=== PATIENT | female | born 1970 | race Caucasian/White ===

== ENCOUNTER 2016-10-03 12:14 | Emergency (ER) | payer BC ==
--- NOTE | 2016-10-03 12:39 | EDM.PDOC ---
ED HPI ENT - General Chief Complaint: ENT Problem Stated Complaint: SINUS INFECTION Time Seen by Provider: 10/03/16 12:25 Source of Information: Reports: Patient History Limitations: Reports: No limitations - History of Present Illness INITIAL COMMENTS - FREE TEXT/NARRATIVE: HISTORY AND PHYSICAL: History of present illness: [Comes to the emergency room complaining of sinus pain and pressure and left temporal headache. She reports a history of migraine headaches since 1994. The headache she is experiencing today is the same as her migraine headaches but much less severe. She does not have a local primary care provider. She feels very congested in her face and sinuses but has not been able to blow out any nasal discharge. Feels tender over her left sinuses. She's had an occasional cough but nothing of any significance. Her appetite is good. no nausea or vomiting. No earaches or sore throat. She's not had any wheezing, shortness of breath or difficulty breathing. She does not take any prescription medications at this time. she has used some [id number] Mucinex with minimal improvement in her symptoms. ] Review of systems: As per history of present illness and below otherwise all systems reviewed and negative. Past medical history: As per history of present illness and as reviewed below otherwise noncontributory. Surgical history: As per history of present illness and as reviewed below otherwise noncontributory. Social history: No reported history of drug or alcohol abuse. Family history: As per history of present illness and as reviewed below otherwise noncontributory. Physical exam: HEENT: Atraumatic, normocephalic. Tenderness with palpation over left paranasal sinuses. Conjunctiva clear. Oral mucous membranes are pink and moist. no tonsillar swelling erythema or exudate. Throat is clear. TMs are pearly lyles and without erythema or effusion. neck is supple no lymphadenopathy. Lungs: Clear to auscultation, breath sounds equal bilaterally. Heart: S1S2, regular, negative for clicks, rubs, or JVD. Abdomen: Soft, nondistended, nontender. Negative for masses or hepatosplenomegaly. Genitourinary: Deferred. Rectal: Deferred. Extremities: Atraumatic, negative for cords or calf pain. Cyanosis or edema to feet or lower legs. Neurovascular unremarkable. Neuro: Awake, alert, oriented. Exam nonfocal. Impression: [Sinusitis] Plan: [Levaquin 500 mg daily for 7 days. Continue decongestants and Mucinex. Urged her to establish care with local primary care provider. All of her questions are answered and concerns are addressed.] Definitive disposition and diagnosis as appropriate pending reevaluation and review of above. - Related Data Allergies/ADRs: Allergies Allergy/AdvReac Type Severity Reaction Status Date / Time doxycycline Allergy Nausea Verified 10/03/16 12:23 Penicillins Allergy Rash Verified 10/03/16 12:23 Home Meds: Home Meds . 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 (see below) Other OB/BYN History: hysterectomy Neurological History: Reports: Headaches, chronic, Migraines Endocrine/Metabolic History: Reports: None Hematologic History: Reports: None Immunologic History: Reports: None - Infectious Disease History Infectious Disease History: Reports: Mumps - Past Surgical History Head Surgeries/Procedures: Reports: None Musculoskeletal Surgical History: Reports: Carpal tunnel Social & Family History - Family History Family Medical History: Noncontributory - Tobacco Use Smoking Status *Q: Never Smoker Second Hand Smoke Exposure: No - Caffeine Use Caffeine Use: Reports: Coffee, Soda Caffeine Use Comment: 4-5/day - Recreational Drug Use Recreational Drug Use: No ED ROS ENT - Review of Systems Review Of Systems: ROS reveals no pertinent complaints other than HPI. ED EXAM, ENT - Physical Exam Exam: See Below Course - Vital Signs Last Recorded V/S: Last Vital Signs Temp 98.0 F 10/03/16 12:16 Pulse 74 10/03/16 12:16 Resp 16 10/03/16 12:16 BP 123/75 10/03/16 12:16 Pulse Ox 100 10/03/16 12:16 Departure - Departure Time of Disposition: 12:40 Disposition: Home, Self-Care 01 Condition: good Clinical Impression: Acute sinusitis Qualifiers: Sinusitis location: unspecified location Recurrence: not specified as recurrent Qualified Code(s): J01.90 - Acute sinusitis, unspecified Instructions: Sinusitis, Adult, [id number] Referrals: PCP,None [Primary Care Provider] - Forms: ED Department Discharge Additional Instructions: The following information is given to patients seen in the emergency department who are being discharged to home. This information is to outline your options for follow-up care. We provide all patients seen in our emergency department with a follow-up referral. The need for follow-up, as well as the timing and circumstances, are variable depending upon the specifics of your emergency department visit. If you don't have a primary care physician on staff, we will provide you with a referral. We always advise you to contact your personal physician following an emergency department visit to inform them of the circumstance of the visit and for follow-up with them and/or the need for any referrals to a consulting specialist. The emergency department will also refer you to a specialist when appropriate. This referral assures that you have the opportunity for follow-up care with a specialist. All of these measure are taken in an effort to provide you with optimal care, which includes your follow-up. Under all circumstances we always encourage you to contact your private physician who remains a resource for coordinating your care. When calling for follow-up care, please make the office aware that this follow-up is from your recent emergency room visit. If for any reason you are refused follow-up, please contact the [facility] emergency department at and asked to speak to the emergency department charge nurse. [address] [address] Established care with a medical provider at the clinic listed above. Tylenol and ibuprofen as needed for discomfort. Take antibiotics as prescribed Return to ER as needed as discussed.
== END 2016-10-03 12:45 | disposition home or self-care (01) ==
LOC: MW.ED 12:14
CPT/HCPCS: 99283

== ENCOUNTER 2016-12-08 21:33 | Emergency (ER) | payer BC ==
--- NOTE | 2016-12-08 21:52 | EDM.PDOC ---
ED HPI GENERAL MEDICAL PROBLEM - General Chief Complaint: Lower Extremity Injury/Pain Stated Complaint: POSSIBLE BROKEN LEFT PINKY TOE Time Seen by Provider: 12/08/16 21:45 - History of Present Illness INITIAL COMMENTS - FREE TEXT/NARRATIVE: HISTORY AND PHYSICAL: History of present illness: The patient is a 46-year-old female with no stated medical history who presents with complaints of pain to her left fifth toe after her 3-year-old granddaughter stepped on it at 3 PM, approximately 7 hours ago. The patient denies any other trauma and has no foot pain but says that the pain originates at the fifth toe and radiates up. She's noticed some bruising to the area and would like evaluation. There are no neurosensory changes in the foot or toe. The remainder of the toes are not painful Review of systems: As per history of present illness and below otherwise all systems reviewed and negative. Past medical history: As per history of present illness and as reviewed below otherwise noncontributory. Surgical history: As per history of present illness and as reviewed below otherwise noncontributory. Social history: No reported history of drug or alcohol abuse. Family history: As per history of present illness and as reviewed below otherwise noncontributory. Physical exam: General: Well-developed well-nourished female nontoxic vital signs have been reviewed by me HEENT: Atraumatic, normocephalic, negative for conjunctival pallor or scleral icterus, mucous membranes moist, throat clear, neck supple, nontender, trachea midline. Lungs: Clear to auscultation, breath sounds equal bilaterally, chest nontender. Heart: S1S2, regular, negative for clicks, rubs, or JVD. Abdomen: Soft, nondistended, nontender. NABS Pelvis: Stable nontender. Genitourinary: Deferred. Rectal: Deferred. Extremities: Atraumatic throughout all extremities with full range of motion with the exception of the left fifth toe with there is minimal mild swelling, ecchymosis is visualized and there is tenderness in this region. The remainder of the toes and left foot are without tenderness or deformities. Neurovascular intact in the toes. The legs are, negative for cords or calf pain. Neurovascular unremarkable. Neuro: Awake, alert, oriented. Cranial nerves II through XII unremarkable. Cerebellum unremarkable. Motor and sensory unremarkable throughout. Exam nonfocal. Diagnostics: X-ray left fifth toe Therapeutics: Patient deferred pain medication on my initial evaluation Postop shoe siomara tape Impression: Fracture of left fifth toe Definitive disposition and diagnosis as appropriate pending reevaluation and review of above. 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 (see below) Other OB/BYN History: hysterectomy Neurological History: Reports: Headaches, chronic, Migraines Endocrine/Metabolic History: Reports: None Hematologic History: Reports: None Immunologic History: Reports: None - Infectious Disease History Infectious Disease History: Reports: Mumps - Past Surgical History Head Surgeries/Procedures: Reports: None Musculoskeletal Surgical History: Reports: Carpal tunnel Social & Family History - Family History Family Medical History: Noncontributory - Tobacco Use Smoking Status *Q: Never Smoker Second Hand Smoke Exposure: No - Caffeine Use Caffeine Use: Reports: Coffee, Soda Caffeine Use Comment: 4-5/day - Recreational Drug Use Recreational Drug Use: No Review of Systems - Review of Systems Review Of Systems: ROS reveals no pertinent complaints other than HPI. Trauma Exam - Physical Exam Exam: See Below (See dictation) Course - Vital Signs Last Recorded V/S: Last Vital Signs Temp 36.6 C 12/08/16 22:52 Pulse 77 12/08/16 22:52 Resp 16 12/08/16 22:52 BP 115/77 12/08/16 22:52 Pulse Ox 96 12/08/16 22:52 - Orders/Labs/Meds Orders: Active Orders 24 hr Category Date Time Status Toes Fifth Digit Lt T4 [CR] Stat Exams 12/08/16 21:49 Taken DME for Discharge [COMM] Stat Oth 12/08/16 22:53 Ordered Departure - Departure Time of Disposition: 22:54 Disposition: Home, Self-Care 01 Condition: good Clinical Impression: Toe fracture, left Qualifiers: Encounter type: initial encounter Toe: lesser toe Fracture type: closed Phalanx : unspecified phalanx Fracture alignment: nondisplaced Qualified Code(s): S92.505A - Nondisplaced unspecified fracture of left lesser toe(s), initial encounter for closed fracture - Discharge Information Referrals: PCP,None [Primary Care Provider] - Forms: ED Department Discharge Additional Instructions: The following information is given to patients seen in the emergency department who are being discharged to home. This information is to outline your options for follow-up care. We provide all patients seen in our emergency department with a follow-up referral. The need for follow-up, as well as the timing and circumstances, are variable depending upon the specifics of your emergency department visit. If you don't have a primary care physician on staff, we will provide you with a referral. We always advise you to contact your personal physician following an emergency department visit to inform them of the circumstance of the visit and for follow-up with them and/or the need for any referrals to a consulting specialist. The emergency department will also refer you to a specialist when appropriate. This referral assures that you have the opportunity for followup care with a specialist. All of these measure are taken in an effort to provide you with optimal care, which includes your followup. Under all circumstances we always encourage you to contact your private physician who remains a resource for coordinating your care. When calling for followup care, please make the office aware that this follow-up is from your recent emergency room visit. If for any reason you are refused follow-up, please contact the [facility] emergency department at and ask to speak to the emergency department charge nurse. [facility]- [facility] Medicine [facility] [address] [place] [id number] [address] Louie [address] [place] [id number] [facility]- Podiatry [address] [place] [phone] Fax: [phone] Ice and elevate the area and wear postop shoe as directed. Use [id number] pain medications as needed and call and followup with our chief station engineer using resources given to above. Return to ER as needed and as discussed - My Orders Last 24 Hours: My Active Orders 12/08/16 21:49 Toes Fifth Digit Lt T4 [CR] Stat 12/08/16 22:53 DME for Discharge [COMM] Stat - Assessment/Plan Last 24 Hours: My Active Orders 12/08/16 21:49 Toes Fifth Digit Lt T4 [CR] Stat 12/08/16 22:53 DME for Discharge [COMM] Stat
[2016-12-08 22:52] VITALS: BP 115/77
--- NOTE | 2016-12-09 13:52 | CR ---
EXAM DATE: 12/08/16 PATIENT'S AGE: 46 Patient: SHAQ EPPERSON Facility: [place], [place] Site . Site : 1970 Study: XRay Extremity 5th digit toe [id number]/10/2017 10:25:57 PM Ordering Physician: Tabby Hinkle Final Report: INDICATION: Trauma to left 5th digit. TECHNIQUE: Left 5th digit, three views. COMPARISON: None FINDINGS: There is soft tissue swelling involving the left 5th digit. On lateral view, findings suspicious for nondisplaced fracture involving the fused distal and middle phalanges. IP joint alignment intact. 5th metatarsal base is intact. IMPRESSION: 1. Left 5th digit soft tissue swelling with nondisplaced fracture suspected on lateral view only. Dictated by Pastor Quinn MD @ 12/08/2016 10:34:52 PM Dictated by: Pastor Quinn MD @ 12/08/2016 22:35:01 (Electronic Signature) Report Signed by Proxy. GUNJAN
== END 2016-12-08 23:10 | disposition home or self-care (01) ==
LOC: MW.ED 21:33
DX: S92.505A Nondisplaced unspecified fracture of left lesser toe(s), initial encounter for closed fracture (principal); Z90.710 Acquired absence of both cervix and uterus; Z79.82 Long term (current) use of aspirin; Z88.0 Allergy status to penicillin; Z88.1 Allergy status to other antibiotic agents; Z98.890 Other specified postprocedural states; W50.0XXA Accidental hit or strike by another person, initial encounter
CPT/HCPCS: 73660-26-T4; 73660-T4; 99283

== ENCOUNTER 2024-04-13 15:06 | Emergency (ER) | payer BC ==
[2024-04-13 15:51] LABS: BASOPHILS ABSOLUTE AUTO 0.06 K/uL (0.00-0.20); BASOPHILS PERCENT AUTO 0.7 % (0.0-1.0); EOSINOPHILS ABSOLUTE AUTO 0.19 K/uL (0.00-0.45); EOSINOPHILS PERCENT AUTO 2.3 % (0.0-6.0); HEMATOCRIT 37.1 % (37.0-47.0); HEMOGLOBIN 12.4 g/dL (12.0-16.0); IMMATURE GRAN ABSOLUTE AUTO 0.02 K/uL (0.00-0.05); IMMATURE GRAN PERCENT AUTO 0.2 % (0.0-0.4); LYMPHOCYTES ABSOLUTE AUTO 2.48 K/uL (1.00-4.80); LYMPHOCYTES PERCENT AUTO 29.5 % (24.0-44.0); MEAN CORPUSCULAR HEMOGLOBIN 30.5 pg (28.0-32.0); MEAN CORPUSCULAR HGB CONC 33.4 g/dL (32.0-36.0); MEAN CORPUSCULAR VOLUME 91.2 fL (83.0-99.0); MEAN PLATELET VOLUME 10.4 fL (9.4-12.3); MONOCYTES ABSOLUTE AUTO 0.68 K/uL (0.00-0.80); MONOCYTES PERCENT AUTO 8.1 % (0.0-8.0); NEUTROPHILS ABSOLUTE AUTO 4.99 K/uL (1.80-7.70); NEUTROPHILS PERCENT AUTO 59.2 % (41.0-71.0); PLATELET COUNT,PLT 281 K/uL (150-400); RED BLOOD CELL COUNT 4.07 M/uL (4.10-5.30); WHITE BLOOD CELL COUNT,WBC 8.42 K/uL (3.9-11.3)
[2024-04-13 16:04] LABS: INR 0.94 (0.86-1.11)
[2024-04-13 16:17] LABS: ALANINE AMINOTRANSFERASE,ALT 16 IU/L (14-63); ALBUMIN 3.4 g/dL (3.4-5.0); ALKALINE PHOSPHATASE 77 U/L (46-116); ASPARTATE AMNIOTRANSFERASE,AST 12 IU/L (15-37); BILIRUBIN TOTAL 0.2 mg/dL (0.2-1.0); BLOOD UREA NITROGEN,BUN 10 mg/dL (7.0-18.0); CALCIUM 9.2 mg/dL (8.5-10.1); CARBON DIOXIDE,CO2 29.1 mmol/L (21.0-32.0); CHLORIDE,CL 104 mmol/L (98-107); CREATININE 0.8 mg/dL (0.6-1.0); EST CRCL DRUG DOSING (CG) 73.51 mL/min; GLUCOSE RANDOM 99 mg/dL (74-106); LIPASE 25 U/L (16-77); POTASSIUM,K 3.6 mmol/L (3.5-5.1); PRO B-TYPE NATRIUR PEPT,BNPPRO 29 pg/mL (0-125); PROTEIN TOTAL,TP 6.9 g/dL (6.4-8.2); SODIUM,NA 139 mmol/L (136-145)
[2024-04-13 16:18] LABS: ESTIMATED GFR 86 mL/min (>60)
[2024-04-13] MEDS: Iopamidol 755 MG/ML 500 ML Multipack Bottle IVPUSH STA (17:35)
[2024-04-13 18:16] VITALS: BP 103/69; PULSE 70
== END 2024-04-13 18:15 | disposition home or self-care (01) ==
LOC: MW.ED 15:06
DX: R07.89 Other chest pain (principal); Z90.710 Acquired absence of both cervix and uterus; J45.909 Unspecified asthma, uncomplicated; Z79.82 Long term (current) use of aspirin; Z88.0 Allergy status to penicillin; Z88.1 Allergy status to other antibiotic agents
CPT/HCPCS: 36415; 71045; 71275; 80053; 83690; 83880; 84484; 85025; 85379; 85610; 93005; 99285; Q9967; 93010; 99284

== ENCOUNTER 2024-07-20 16:42 | Emergency (ER) | payer OTHER, BC ==
[2024-07-20 19:05] VITALS: BP 113/67; PULSE 70
== END 2024-07-20 19:05 | disposition home or self-care (01) ==
LOC: MW.ED 16:42
DX: S09.90XA Unspecified injury of head, initial encounter (principal); M54.2 Cervicalgia; Z88.0 Allergy status to penicillin; Z88.1 Allergy status to other antibiotic agents; Z79.899 Other long term (current) drug therapy; V43.52XA Car driver injured in collision with other type car in traffic accident, initial encounter; Y92.410 Unspecified street and highway as the place of occurrence of the external cause
CPT/HCPCS: 70450; 70450-26; 71046; 71046-26; 72125; 72125-26; 99284